=== PATIENT | female | born 1975 ===

== ENCOUNTER 2024-07-16 05:36 | Day surgery (SDC) | payer OTHER ==
[2024-07-10 08:28] VITALS: BP 150/92
[2024-07-10 08:39] LABS: URINE APPEARANCE Clear; URINE BILIRRUBIN Negative (NEGATIVE); URINE BLOOD Moderate; URINE COLOR Yellow; URINE GLUCOSE Negative (NEGATIVE); URINE KETONE Negative (NEGATIVE); URINE LEUKOCYTE Small; URINE NITRATE Negative; URINE PROTEIN Negative (NEGATIVE); URINE UROBILINOGEN 0.2 E.U./dl
[2024-07-10 08:40] LABS: URINE BACTERIA 594.7 uL (0.0-1933); URINE EPITHELIAL CELLS 36.4 uL (0.0-38.8); URINE RBC 47.8 uL (0.0-20.8)
[2024-07-10 08:57] LABS: HEMATOCRIT 39.1 % (36.0-45.00); HEMOGLOBIN 12.9 g/dL (12.0-15.00); MEAN CELL VOLUME 83.8 fL (80.00-100.00); MEAN CORPUSCULAR HEMOGLOBIN 27.6 pg (27.00-32.0); MEAN CORPUSCULAR HGB CONC 32.9 g/dl (32.0-36.0); PLATELET COUNT 274 K/uL (150-450); RED BLOOD COUNT 4.67 M/uL (4.00-6.00); RED CELL DISTRIBUTION WIDTH 14.4 % (11.5-14.5)
[2024-07-10 09:23] LABS: INR 0.99; PROTHROMBIN TIME 10.8 SECONDS (9.0-11.5)
[2024-07-10 10:13] LABS: ALBUMIN 3.9 gm/dL (3.4-5.0); BILIRUBIN TOTAL 0.39 mg/dL (0.3-1.2); CALCIUM 8.8 mg/dL (8.5-10.1); CREATININE SERUM 0.9 mg/dL (0.55-1.02); GFR 66.27; GLOBULINA 3.3 G/DL (2.4-3.5); POTASSIUM 4.24 mEq/L (3.5-5.1); TOTAL PROTEIN 7.2 gm/dL (6.4-8.2)
[~2024-07-16] VITALS: Ht 165.1 cm; Wt 89.4 kg
[~2024-07-16 05:36] MED LIST: PROVERA2.5 MG PO
[2024-07-16] MEDS ORDERED: POVIDONE-IODINE 118 ML BOTT TOP ONE (07:05)
[2024-07-16] MEDS ORDERED: CHLORHEXIDINE GLUCONATE 120 ML BOTTLE TOP ONE (07:10)
[2024-07-16] MEDS ORDERED: GENTAMICIN SULFATE 40 MG/ML VIAL ONE (07:10)
[2024-07-16] MEDS ORDERED: DOXYCYCLINE HY100 M2 PO (13:57)
[2024-07-16] MEDS ORDERED: NAPROXEN500 MG PO (13:58)
== END 2024-07-16 13:40 | disposition home or self-care (01) ==
LOC: CIR.AMB 05:36
PROVIDERS: ATTEND Obstetrics & Gynecology
DX: D25.0 Submucous leiomyoma of uterus (principal); N93.8 Other specified abnormal uterine and vaginal bleeding; N84.0 Polyp of corpus uteri